=== PATIENT | female | born 1990 | race Caucasian/White ===

== ENCOUNTER 2022-03-25 13:29 | Emergency (ER) | payer BC, SELFPAY ==
[2022-03-25 14:45] VITALS: BP 127/88; PULSE 118; RESP 24; TEMP 36.6; O2SAT 96; BMI 40.7
[2022-03-25 14:58] LABS: UTC Influenza A Antigen Negative (Negative); UTC Influenza B Antigen Negative (Negative)
--- NOTE | 2022-03-25 15:06 | EXP.UTC ---
Discharge Plan Disposition Patient Disposition: Home, Self-Care Condition: Good Prescriptions Prescriptions: New benzonatate 100 mg capsule 100 mg PO TID PRN (Reason: cough) Qty: 30 0RF ondansetron 4 mg tablet,disintegrating 4 mg PO Q8H PRN (Reason: nausea and vomiting) Qty: 10 0RF No Action cetirizine 10 mg tablet 10 mg PO DAILY Label Comments: TAKE 1 TABLET BY MOUTH EVERY DAY escitalopram oxalate 20 mg tablet 20 mg PO DAILY cyclobenzaprine 5 mg tablet 5 mg PO TIDP PRN (Reason: Pain) Label Comments: TAKE 1 TABLET BY MOUTH THREE TIMES DAILY NEEDED FOR MUSCLE SPASMS bupropion HCl 150 mg tablet extended release 24 hr 150 mg PO DAILY Label Comments: TAKE 2 TABLETS BY MOUTH EVERY MORNING Referrals Follow up/Referrals: Missy Bridges APRN [Primary Care Provider] - See instructions Activity Restrictions/Add. Instructions Additional Instructions/Restrictions: *Monitor Temp, Over the counter Motrin or Tylenol as directed/as needed Tylenol every 4 hours and Motrin every 6 hours (as long as your family doctor has told you that you can take it) for fever or pain. and straight to ER if unable to lower temp less than 101.0 after medication given *Warm salt water gargles may help to soothe the throat *Throat Lozenges? *Warm fluids like tea with honey may help to soothe the throat? *Sleep elevated *Humidifier/Vaporizer Drink extra fluids with and between meals. If you have difficulty drinking, try very small amounts of water or suck on ice chips. ? Avoid fruit juices, as these do not replace minerals and can actually increase diarrhea. ? Children and adults can use sports drinks to replenish electrolytes. Younger children and infants should use products formulated for children, like oral rehydration solutions. ? Eat food in small amounts and let your stomach recover. ? Get lots of rest. You may feel tired or weak. ? No greasy or fried foods for the next 24-48 hours BRAT diet Bananas Rice Apples and Mingus ? Make sure to drink plenty of liquids ? Return if needed ? Straight to ER if any life threatening symptoms ? Zofran as prescribed ? Follow up with family doctor in the next 48-72 hours if no improvement or any worsening of symptoms Follow up IMMEDIATELY for new or worsening symptoms or no Noticeable improvement over the next 48-72 hours. 911 for difficulty breathing or swallowing You were tested for today for COVID19 your test result should be back in the next 24-48 hours, you may check your results on the [facility] [employer] [facility] Portal Clinical Impressions Clinical Impression: Viral syndrome Stand Alone Forms Stand Alone Forms: Work/School Release Instructions Patient Instructions: DI for Viral Syndrome, DI for Vomiting -- Adult, DI for Fever (Symptom) -- Adult Discharge ED Provider: Cassie Sargent [facility] HPI General Stated complaint: BA, Cough, fever, VANCE Mode of Arrival: Ambulatory Source of Information: Patient Limitations: No Limitations Time Seen by Provider: 03/25/22 15:06 Description of Symptoms (Recalled from Triage Doc. by RN): PATIENT C/O FEVER, SORE THROAT, HEADACHE, NAUSEA, VOMITING, BODY ACHES, AND DRY COUGH SINCE YESTERDAY MORNING HEENT Symptoms (Recalled from RN notes): Yes Resp Symptoms (Recalled from RN notes): Yes Skin Symptoms (Recalled from RN notes): No MS Symptoms (Recalled from RN notes): No Functional Status (Recalled from RN notes): WNL History of Present Illness Provider Complaint: Patient states that she woke up yesterday having chills and body aches States that it has continued to get worse States that she has been having low grade fever, body aches, chills, N/V and dry cough States that she feels like she may have the flu Related Data Home Medications Medication Instructions Recorded Confirmed bupropion HCl 150 mg 24 hr tablet, 150 m
[2022-03-25 15:22] VITALS: BP 127/88; PULSE 118; RESP 24; TEMP 36.6; O2SAT 96
[2022-03-25 15:44] LABS: Adenovirus,PCR Not Detected (NotDetected); Bordetella Pertussis Not Detected (NotDetected); Chlamydophila Pneumoniae, PCR Not Detected (NotDetected); Coronavirus 229E Not Detected (NotDetected); Coronavirus NL63 Not Detected (NotDetected); Coronavirus OC43 Not Detected (NotDetected); Coronovirus HKU1,PCR Not Detected (NotDetected); Human Metapneumovirus Not Detected (NotDetected); Influenza A, PCR Not Detected (NotDetected); Influenza AH1, 2009 Not Detected (NotDetected); Influenza AH1, PCR Not Detected (NotDetected); Influenza AH3,PCR Not Detected (NotDetected); Influenza B, PCR Not Detected (NotDetected); Mycoplasma Pneumoniae, PCR Not Detected (NotDetected); Parainfluenza 1, PCR Not Detected (NotDetected); Parainfluenza 2, PCR Not Detected (NotDetected); Parainfluenza 3, PCR Not Detected (NotDetected); Parainfluenza 4, PCR Not Detected (NotDetected); Respiratory Syncytial Virus Not Detected (NotDetected)
[2022-03-25 17:17] LABS: Coronavirus 19, PCR Detected (NotDetected); Rhinovirus/Enterovirus Detected (NotDetected)
== END 2022-03-25 15:40 | disposition home or self-care (01) ==
PROVIDERS: Emergency Provider Nurse Practitioner; PCP Nurse Practitioner
DX: U07.1 COVID-19 (principal); N39.0 Urinary tract infection, site not specified; J02.9 Acute pharyngitis, unspecified; B34.9 Viral infection, unspecified; R05.9 Cough, unspecified; R50.9 Fever, unspecified; R11.2 Nausea with vomiting, unspecified; M79.10 Myalgia, unspecified site; R51.9 Headache, unspecified; Z79.899 Other long term (current) drug therapy; Z87.442 Personal history of urinary calculi
CPT/HCPCS: 87581; 87632; 87798; 87804; 99213; C9803; G0463; U0003; U0005

== ENCOUNTER 2024-09-30 09:49 | Outpatient (CLI) | payer MEDICAID, SELFPAY ==
[2024-09-30 09:55] VITALS: BMI 38.9
[2024-09-30 10:16] LABS: Basophils # 0.1 K/mm3 (0-0.2); Basophils % 1.4 % (0.1-2.0); Eosinophils # 0.4 Kmm3 (0.0-0.4); Eosinophils % 4.1 % (0.1-12.0); Hematocrit 42.8 % (37.0-47.0); Hemoglobin 14.2 g/dL (12.2-16.2); Lymphocytes # 2.5 K/mm3 (0.7-4.5); Lymphocytes % 26.5 % (10-50); Mean Corpuscular HGB Conc 33.2 g/dL (31.8-35.4); Mean Corpuscular Hemoglobin 31.3 pg (27.0-31.2); Mean Corpuscular Volume 94.5 fl (81-99); Mean Platelet Volume 9.8 fl (7.4-10.4); Monocytes # 0.6 K/mm3 (0.1-1.0); Monocytes % 6.2 % (1.7-9.3); Neutrophils # 5.9 K/mm3 (1.8-7.8); Neutrophils % 61.4 % (37.0-80.0); Nucleated Red Blood Cells # 0 10^3/uL; Nucleated Red Blood Cells % 0 %; Platelet Count 377 K/mm3 (142-424); Red Blood Count 4.53 M/mm3 (4.20-5.40); Red Cell Distribution Width 12.1 % (11.5-17.5); Red Cell Distribution Width-SD 42.2 fL; White Blood Count 9.6 K/mm3 (4.8-10.8)
[2024-09-30 10:27] LABS: Anion Gap 11.1 mEq/L (5-15); Blood Urea Nitrogen 14 mg/dl (7-17); Calcium 9.1 mg/dl (8.4-10.2); Carbon Dioxide 23 mmol/L (22.0-30.0); Chloride 110 mmol/L (98-107); Creatinine Clearance Estimated 139 mL/min (50-200); Estimated Glomerular Filt Rate 72 ml/min (>60); GFR (African American) 87 ML/MIN (>60); Glucose 84 mg/dl (74-100); Potassium 4.1 mmoL/L (3.5-5.1); Sodium 140 mmol/L (136-145)
[2024-09-30 10:49] LABS: HCG Qualitative, Serum Negative (Negative)
== END 2024-09-30 23:59 | disposition home or self-care (01) ==
LOC: PREOP 09:50
PROVIDERS: PCP Nurse Practitioner; Visit Provider Otolaryngology
DX: Z01.812 Encounter for preprocedural laboratory examination (principal)
CPT/HCPCS: 80048; 84703; 85025

== ENCOUNTER 2024-10-05 08:29 | Day surgery (SDC) | payer MEDICAID, SELFPAY ==
[2024-09-30 11:00] VITALS: BMI 38.9
[2024-10-05] VITALS (11 sets, daily range): BP systolic 115–160; BP diastolic 76–99; PULSE 76–100; RESP 16–20; TEMP 36.3–36.4; O2SAT 95–99
[2024-10-05] MEDS: LACTATED RINGERS 1000ML 1,000 ML 25 ML IV (09:04)
--- NOTE | 2024-10-05 09:19 | P.PNANES_ITS ---
[facility] Disclaimer: The information contained in this section may have been updated after the patient was seen, as this information can be updated by other users. Medical History Hx of nephrolithotomy with removal of calculi History of kidney stones Chronic tonsillitis Tympanosclerosis Hypertrophy of tonsils History of peritonsillar abscess Depression Anxiety Urinary tract infection Kidney stone Asthma Surgical History History of tympanostomy tube placement History of section Family History Other Family history of diabetes mellitus Social History Smoking Status: Never smoker alcohol intake: never substance use type: denies use current occupational status: employed Travel in the last 8 weeks: None [facility] Anesthesia Checklist Patient Identification Patient Identification: Arm Band and Verbal (Name & ) Structural Data Admitted From: Home Planned Operative Procedure/s: Tonsillectomy Consent for Planned Operative Procedure(s) Verified: Yes Verified Documents: Surgical Consent NPO Status Verified Time NPO: 00:00 Chart Verification Results Verified: None Additional verifications Patient : No Anesthesia Reactions: No Hx Blood Transfusions: No Blood Transfusion Reaction: No Airway Assessment Mallampati Score:: Class II C-Spine Mobility Assessed: Yes TMJ Mobility Assessed: No Dentition: Good Dentition Neurological Assessment Level of Consciousness: Awake, Alert and Appropriate Hx Seizures: No Numbness or tingling in extremities: No Anesthesia Plan Anesthesia Risk discussed: Yes Anesthesia Plan: Verified ASA Class: II Anesthesia Type: General
[2024-10-05] MEDS: IPRATROPIUM/ALBUTEROL 3 ML NEB IH (09:57)
[2024-10-05] MEDS: BUPIVACAINE 0.5% W/EPI 1:200,000 30ML VIAL 30 ML IJ (10:40)
--- NOTE | 2024-10-05 10:54 | EXP.OP.NOTE ---
Date of procedure: 10/05/24 Pre-op Diagnosis:: Chronic tonsillitis. Post-op Diagnosis:: Same Procedure performed:: Tonsillectomy Surgeon:: Prince Valentin III, MD [employer] ENGINEERING TECHNICIAN:: Jeromy Becker Anesthesia: GETA Estimated blood loss (mL): 20 Operative findings:: Enlarged cryptic tonsils Operative note:: The patient was brought to the operating room placed under general endotracheal anesthesia with IV sedation. They were then placed in the Anabela position and a McIvor mouthgag was used to better expose the oral cavity and oropharynx. The soft palate was palpated and noted to be intact through all planes. The adenoid pad was inspected and noted to be nonobstructing. The right tonsil was then dissected from its underlying fascial and muscular attachments using electrocautery dissection. Any bleeding spots were spot coagulated. A similar procedure was performed on the left side with similar results. The wound was then irrigated with sterile water solution. After observation and no evidence any further bleeding, I injected half percent Marcaine with epinephrine into the tonsillar fossae approximately 3.5 ccs were used. The patient stomach contents were aspirated clear. She was awakened in the operating room taken recovery room in good condition. Condition: stable Disposition: PACU Complications:: None
--- NOTE | 2024-10-05 11:04 | P.PNANES_ITS ---
[facility] Anesthesia Record Part I Anesthesia Record I Intake, IV Amount: 750 Hydration: Adequate Estimated blood loss (mL): 29 Urine output (mL): 0 Blood Products used (#): none Blood Pressure: 132/76 SaO2: 98 Pulse Rate: 100 Airway Patency: Patent Respiratory Rate: 18 Temperature: 97.3 F Patient is:: Drowsy and Stable Stable to PACU at:: 10:53
--- NOTE | 2024-10-05 14:21 | P.PNANES_ITS ---
[facility] Anesthesia Record Part II Anesthesia Record Part II Discharge Time: 11:23 Destination: Surgical Day Care (OP Surgery) PACU nurse assessment reviewed?: Yes Patient Condition:: Good Anesthesia Complications:: None Swallowing reflex intact?: Yes Airway Patency: Patent Cyanosis?: No Blood Pressure: 135/90 SaO2: 98 Respiratory Rate: 16 Pulse Rate: 89 Temperature: 97.3 F Mental Status: Alert & Oriented Pain level:: 0 Nausea and/or vomitting:: None Intake, IV Amount: 0 Hydration: Adequate
== END 2024-10-05 12:03 | disposition home or self-care (01) ==
PROVIDERS: PCP Nurse Practitioner; Visit Provider Otolaryngology
PROC: (CPT 42826; principal; 2024-10-05 10:00)
DX: J35.01 Chronic tonsillitis (principal)
CPT/HCPCS: 42826; 94640; J3490; J1100; J2250; J2405; J3010; J7120; J7620